=== PATIENT | male | born 1965 | race Caucasian/White ===

== ENCOUNTER → 2019-01-15 09:32 | Outpatient (CLI) | payer MEDICARE, MEDICAID ==
[2014-12-13 07:36] VITALS: BMI 36.6
[~2019-01-15 09:32] MED LIST: ACIDOPHILUS LAC1 CAP PO; AMOXICILLIN500 M1 PO; BIAXIN 500 MG500 MG PO
== END | disposition home or self-care (01) ==
LOC: D.CT 09:32
PROVIDERS: ATTEND Internal Medicine Gastroenterology
DX: R10.9 Unspecified abdominal pain (principal); R11.2 Nausea with vomiting, unspecified

== ENCOUNTER → 2019-01-26 08:18 | Outpatient (CLI) | payer MEDICARE, MEDICAID ==
[2014-12-13 07:36] VITALS: BMI 36.6
== END | disposition home or self-care (01) ==
LOC: D.MRI 08:18
PROVIDERS: ATTEND Internal Medicine Gastroenterology
DX: R94.5 Abnormal results of liver function studies (principal)

== ENCOUNTER 2019-05-14 18:17 | Emergency (ER) | payer MEDICARE, MEDICAID ==
[~2019-05-14] VITALS: Ht 170.2 cm; Wt 113.6 kg
[2019-05-14 18:39] VITALS: Ht 170.2 cm; Wt 113.6 kg
[2019-05-14] MEDS ORDERED: NAPROSYN500 MG PO (20:23)
[2019-05-14 21:00] VITALS: BP 143/80
== END 2019-05-14 21:00 | disposition home or self-care (01) ==
LOC: D.ER 18:17
DX: M25.562 Pain in left knee (principal); M76.9 Unspecified enthesopathy, lower limb, excluding foot

== ENCOUNTER 2019-07-09 19:41 | Inpatient (IN) | payer MEDICARE, MEDICAID ==
[~2019-07-09] VITALS: Ht 170.2 cm; Wt 111.8 kg
[~2019-07-09 19:41] MED LIST changes: +NAPROSYN500 MG PO
--- NOTE | 2019-07-09 20:01 | NUR ---
POISON CONTROL CONTACTED. INSTRUCTED TO TREAT PT SYMPTOMATICALLY AND MONITOR FOR RESP DEPRESSION, BRADYCARDIA. INFORMED TO CONSULT POISON CONTROL IF PT HAS ELEVATED TYLENOL OR SALICILATE LEVELS
--- NOTE | 2019-07-09 20:04 | NUR ---
PT HAVING DIFFICULTY FOLLOWING COMMANDS AT THIS TIME, BUT IS SPEAKING TO NURSES. PT WILL OPEN EYES WHEN DIRECTED, BUT IMMEDIATELY CLOSES THEM. PT ALSO HAVEING UNCONTROLLED JERKING MOVEMENTS, THAT PER EMS BEGAN EN ROUTE. COLOR WNL FOR RACE. RESPIRATIONS ARE EVEN AND UNLABORED. NO DISTRESS NOTED.
[2019-07-09 20:17] LABS: BASOPHILS 0.4 % (0-2); HEMATOCRIT 46.3 % (42.0-54.0); HEMOGLOBIN 15.8 g/dL (13.5-17.5); IMMATURE GRANULOCYTES 0.4 % (0-5); LYMPHOCYTES 13.3 % (15-50); MCH 30.7 pg (26.0-34.0); MCHC 34.1 g/dL (31.0-37.0); MCV 89.9 fL (80.0-100.0); MEAN PLATELET VOLUME 9.9 fL (7.4-10.4); MONOCYTES 5.1 % (2-11); NEUTROPHILS 79.8 % (40-80); PLATELET COUNT 177 10x3/uL (130-400); RBC 5.15 10x6/uL (4.20-6.10); RDW 13.3 % (11.5-14.5); WBC 10.9 10x3/uL (4.8-10.8)
[2019-07-09 20:38] LABS: ANION GAP 13.7 mmol/L (8-16); CALCIUM 9.8 mg/dL (8.5-10.1); CARBON DIOXIDE 26.2 mmol/L (21.0-32.0); CREATININE - SERUM 1.3 mg/dL (0.6-1.3); POTASSIUM - SERUM 3.9 mmol/L (3.5-5.1)
[2019-07-09 20:45] LABS: ALBUMIN 3.6 g/dL (3.4-5.0); BILIRUBIN - TOTAL 0.55 mg/dL (0.2-1.3)
[2019-07-09 21:01] LABS: BILIRUBIN NEGATIVE (NEGATIVE); GLUCOSE NEGATIVE (NEGATIVE); KETONE NEGATIVE (NEGATIVE); NITRITE NEGATIVE (NEGATIVE); SPECIFIC GRAVITY 1.025 (1.005-1.020); UROBILINOGEN NORMAL (NORMAL)
[2019-07-09 21:06] LABS: UDS - AMPHET NEGATIVE QUAL (NEGATIVE); UDS - BARB NEGATIVE QUAL (NEGATIVE); UDS - BENZO NEGATIVE QUAL (NEGATIVE); UDS - COCAINE NEGATIVE QUAL (NEGATIVE); UDS - OPIATE NEGATIVE QUAL (NEGATIVE); UDS - PCP NEGATIVE QUAL (NEGATIVE); UDS - THC NEGATIVE QUAL (NEGATIVE)
--- NOTE | 2019-07-09 21:17 | NUR ---
PT IS BECOMING AGGRESSIVE AT THIS TIME. PT PULLED OFF ALL MONITORS. ATTEMPTS TO PUT MONITORS BACK ON X5. UNSUCCESSFUL. PT IS RESTING WITH EYES CLOSED . RESPIRATIONS ARE EVEN AND UNLABORED. PT DIFFICULT TO AROUSE, BUT WILL AROUSE WITH LOUD VOICE, AND TACTILE STIMULI. . FAMILY AT BEDSIDE.
[2019-07-09 21:41] VITALS: BP 103/63
--- NOTE | 2019-07-09 22:40 | NUR ---
BACLOFEN SENT HOME WITH FAMILY MEMBER
[2019-07-09 22:50] VITALS: BP 141/97
[2019-07-09 23:00] VITALS: BP 141/80
[2019-07-10] VITALS (15 sets, daily range): BP systolic 100–159; BP diastolic 71–102; Ht 170.2 cm; Wt 111.8 kg
--- NOTE | 2019-07-10 00:33 | NUR ---
POISON CONTROL CALLED AND UPDATE GIVEN, NO FURTHER ORDERS RECEIVED.
--- NOTE | 2019-07-10 07:00 | NUR ---
BEDSIDE REPORT RECEIVED. SHIFT ASSESSMENT COMPLETED PER THE FLOWSHEET, SEE FLOWSHEET FOR INFORMATION. PT VERY HARD TO AROUSE, STERNAL RUB AND PAIN RESPONSE DONE WITH NO RESPONSE. AROUSED PT TO YELLING HIS NAME AND STERNAL RUB. PT ANSWERED MY QUESTIONS AND WENT RIGHT BACK TO SLEEP. AFTER THAT HE WOULD AWAKEN EASIER WITH JUST SAYING HIS NAME. WILL CONT TO MONITOR.
--- NOTE | 2019-07-10 09:00 | NUR ---
FAMILY AT BEDSIDE. UPDATE GIVEN. WILL CONT TO MONITOR.
--- NOTE | 2019-07-10 11:00 | NUR ---
REASSESSMENT COMPLETED PER FLOWSHEET, SEE FLOWSHEET FOR INFORMATION. PT AWAKE AND ALERT AT THIS TIME. NO ACUTE NEEDS OR DISTRESS NOTED AT THIS TIME. VSS. WILL CONT TO MONITOR.
--- NOTE | 2019-07-10 13:00 | NUR ---
NEW ORDERS RECEIVED. NO ACUTE NEEDS OR DISTRESS NOTED AT THIS TIME.
[2019-07-10] MEDS ORDERED: GLUCOPHAGE500 MG PO (13:16)
--- NOTE | 2019-07-10 15:00 | NUR ---
WAITING ON FAMILY TO GET HERE. PT STATES "I'M READY TO GO HOME", ENSURED PT THAT HE WOULD BE GOING HOME TODAY AND CALMED PT. WILL CONT TO MONITOR.
--- NOTE | 2019-07-10 15:30 | NUR ---
PT DISCHARGED TO HOME WITH SELF CARE VIA WHEELCHAIR TO PERSONAL VEHIVLE, ACCOMPANIED BY FAMILY. NO ACUTE NEEDS OR DISTRESS NOTED AT THIS TIME. WILL CONT TO MONITOR.
--- NOTE | 2019-07-10 17:42 | MORECARE ---
CASE MANAGEMENT DISCHARGE SUMMARY PATIENT: DWAYNE STANLEY JUNIOR UNIT: [id number] ADM DATE: 07/09/19 AGE: 53 : 61 SEX: M ROOM/BED: D.2311 AUTHOR: YONI BARNES PHYSICIAN: REFERRING PHYSICIAN: RACHEL FAROOQ MD DATE OF SERVICE: 07/10/19 Discharge Plan Patient Name: DWAYNE STANLEY Facility: [facility]:[place] : 1965 Planned Disposition: Home Anticipated Discharge Date: Discharge Date: 07/10/2019 Expected LOS: Initial Reviewer: [email or web address] Initial Review Date: 07/10/2019 Generated: 07/10/19 6:42 pm DCPIA - Discharge Planning Initial Assessment Updated by RUCHI: Maureen George on 07/10/19 5:41 pm * Is the patient Alert and Oriented? Yes * How many steps to enter\exit or inside your home? * PCP [facility] * Pharmacy [facility] * Preadmission Environment Home with Family * ADLs Independent * Equipment CPAP * List name and contact numbers for known caregivers / representatives who currently or will assist patient after discharge: RENAE QUIGLEY - SO- [phone] * Verbal permission to speak to the caregivers and representatives has been obtained from the patient. Yes * Community resources currently utilized None * Additional services required to return to the preadmission environment? No * Can the patient safely return to the preadmission environment? Yes * Has this patient been hospitalized within the prior 30 days at any hospital? No Coverage Notice Reviewer: [email or web address] Nadia George Notice Issued Date-Time: 07/10/2019 17:36 Notice Type: Patient Choice Letter Notice Delivered To: Patient Relationship to Patient: Self Twisting Frame Fixer Name: Delivery Method: HAND - Hand Delivered Beth Days: Prior Verbal Notification: Recipient Understood Notice: Yes Recipient Signature: Yes Med Rec Note Co-signed by Attending: Coverage Notice Comment: patient refused home health services and signed declination of services Patient Name: DWAYNE STANLEY Page [phone] at 1742 All edits/amendments must be made on the electronic document DICTATION DATE: 03/13/20 1742 ACOUSTIC SENSOR OPERATOR: CRISTINA 07/10/19 1742 RPT#: [id number] DC DATE:07/10/19 STATUS: DIS IN [facility] [address] [place] [address] END OF REPORT
--- NOTE | 2019-07-10 17:49 | MORECARE ---
CASE MANAGEMENT DISCHARGE SUMMARY PATIENT: DWAYNE STANLEY JUNIOR UNIT: [id number] ADM DATE: 07/09/19 AGE: 53 : 61 SEX: M ROOM/BED: D.2311 AUTHOR: MOLLY,DOC PHYSICIAN: REFERRING PHYSICIAN: RACHEL FAROOQ MD DATE OF SERVICE: 07/10/19 Discharge Plan Patient Name: DWAYNE STANLEY Facility: [facility]:[place] : 1965 Planned Disposition: Home Anticipated Discharge Date: Discharge Date: 07/10/2019 Expected LOS: Initial Reviewer: [email or web address] Initial Review Date: 07/10/2019 Generated: 07/10/19 6:49 pm Comments DCP- Discharge Planning Updated by [email or web address]: Maureen George on 07/10/19 4:[address] Patient Name: DWAYNE STANLEY Admission Status: ER Accout number: [id number] Admission Date: 07-09-2019 : 1965 Admission Diagnosis: Attending: RACHEL FAROOQ Current LOS: 1 Anticipated DC Date: Planned Disposition: Home Primary Insurance: [facility] [employer] Discharge Planning Comments: CM met with patient at bedside after explaining CM role and obtaining verbal consent. Patient and Significant Other are both noted to have developmental delays. Patient lives at home with his significant other Stacey where he is independent with his care and plans to return there upon discharge. Patient feels this would be a safe discharge. CM discussed availability / needs of home health and medical equipment. Patient refused Home Health Services and declination signed. CM gave both patient and Stacey information on [facility] walk in clinics. Patient denies any discharge needs at this time. Patient states he will have his family drive him home upon discharge. CM will continue to follow and assist as needed with discharge planning / needs. Timers Inspector: Maureen George DCPIA - Discharge Planning Initial Assessment Updated by [email or web address]: Muareen George on 07/10/19 5:41 pm * Is the patient Alert and Oriented? Yes * How many steps to enter\exit or inside your home? * PCP [facility] * [facility] * Preadmission Environment Home with Family * ADLs Independent * Equipment CPAP * List name and contact numbers for known caregivers / representatives who currently or will assist patient after discharge: STACEY QUIGLEY - SO- [phone] * Verbal permission to speak to the caregivers and representatives has been obtained from the patient. Yes * Community resources currently utilized None * Additional services required to return to the preadmission environment? No * Can the patient safely return to the preadmission environment? Yes * Has this patient been hospitalized within the prior 30 days at any hospital? No Coverage Notice Reviewer: [id number] Nadia George Notice Issued Date-Time: 07/10/2019 17:36 Notice Type: Patient Choice Letter Notice Delivered To: Patient Relationship to Patient: Self Waiter/Waitress Buffet Name: Delivery Method: HAND - Hand Delivered Beth Days: Prior Verbal Notification: Recipient Understood Notice: Yes Recipient Signature: Yes Med Rec Note Co-signed by Attending: Coverage Notice Comment: patient refused home health services and signed declination of services Last DP export: 07/10/19 4:42 p Patient Name: DWAYNE STANLEY Page [phone] at 1749 All edits/amendments must be made on the electronic document DICTATION DATE: 07/10/191748 DEAN OF STUDENTS: CRISTINA 07/10/191748 RPT#: [id number] DC DATE:07/10/19 STATUS: DIS IN [facility] [address] [place] [address] END OF REPORT
--- NOTE | 2019-07-12 16:58 | CN ---
PATIENT NAME:DWAYNE STANLEY JUNIOR MEDICAL RECORD: [id number] : 61 LOCATION:MITUL.2311 ADMIT DATE: 07/09/19 ACCOUNT: [id number] CONSULTING PHYSICIAN: SADI POON MD REFERRING PHYSICIAN: RACHEL FAROOQ MD DATE OF CONSULTATION: 07/10/2019 CHIEF COMPLAINT: Overdose. HISTORY OF PRESENT ILLNESS: Consult with the patient in his room included his girlfriend and his 2 sisters, one of his sister is his girlfriend's mother. The patient reports that he was not trying to kill himself, that they were having an argument. Sister states that they frequently have arguments. The patient reports that he took 2 Baclofen and his other sister and brother gave him something else. The sister reports that they gave him their Ativan. The patient denied any homicidal ideation. The patient denies any decrease in appetite. He states that he does feel a little sad. The patient states that he has been sleeping okay and he states that sometimes he gets frustrated but the patient reiterates that he did not want to kill himself. OBJECTIVE: The patient is alert, slightly disheveled. He is oriented to person, place, time and situation. The patient does have an intellectual disability, probably moderate. It appears that the family members also have some intellectual disability and I would say unspecified. The patient appears that he can do some independent activities of daily living such as showering, bathing, eating, has some thought process, but probably struggles with some functional disabilities such as related to managing his own finances. The patient and girlfriend do live independently in her home. His associations are somewhat loose. He has good eye contact. Judgment would be impaired. He is able to focus on our conversation. He does appear slightly depressed and anxious. His affect is restricted and his anxiety is moderate. MEMORY: The patient does not display any severe memory deficits. The patient does not appear to be attending to any hallucinations, visual or auditory hallucinations or have any delusions. His judgment and insight are poor. Impulsivity is moderate to high. Labs reviewed - toxicity negative for BZDs. ASSESSMENT: Major depression and stated unspecified intellectual disability. PLAN: Would be to recommend consult with case management, consider APS evaluation and assessment. Verify if patient has been 'tiered' in the [place] Medicaid system via [facility]. Consider antidepressant such as zoloft. Consider referral for outpatient counseling. Pt and pt family refused offer for inpatient evaluation. The patient does not appear to be at harm. Dictated By: Aletha Perez APN I have interviewed/examined the above patient and agree with these documented findings. TRANSINT:[id number] Voice Confirmation ID: [id number] DOCUMENT ID: [id number] CONSULT REPORT [id number] DWAYNE STANLEY JUNIOR, PETER MD at 1658 at 1717 CC: [id number] DICTATION DATE: 07/10/19 1612 BALL ENDER: 07/10/19 2358 DIS IN 07/10/19 [id number] [place] [address]
== END 2019-07-10 15:30 | disposition home or self-care (01) | DRG 918 ==
LOC: D.ER 19:41 → D.ICU 20:36
PROVIDERS: Emergency Medicine; ADMIT Family Medicine; ATTEND Family Medicine
DX: T50.901A Poisoning by unspecified drugs, medicaments and biological substances, accidental (unintentional), initial encounter (principal); F32.9 Major depressive disorder, single episode, unspecified; F79 Unspecified intellectual disabilities; F43.23 Adjustment disorder with mixed anxiety and depressed mood; E11.649 Type 2 diabetes mellitus with hypoglycemia without coma

== ENCOUNTER 2019-11-15 18:44 | Emergency (ER) | payer MEDICARE, MEDICAID ==
[~2019-11-15] VITALS: Ht 170.2 cm; Wt 110.9 kg
[~2019-11-15 18:44] MED LIST changes: +GLUCOPHAGE500 MG PO
[2019-11-15 19:22] VITALS: Ht 170.2 cm; Wt 110.9 kg
[2019-11-15] MEDS ORDERED: HYDROCORTISO28.35 G1 TOPICAL (20:00)
[2019-11-15] MEDS ORDERED: FUROSEMIDE20 MG PO (20:00)
[2019-11-15 20:19] VITALS: BP 147/77
== END 2019-11-15 20:19 | disposition home or self-care (01) ==
LOC: D.ER 18:44
DX: I87.2 Venous insufficiency (chronic) (peripheral) (principal)

== ENCOUNTER → 2020-08-05 08:52 | Outpatient (CLI) | payer MEDICARE, MEDICAID ==
[2019-11-15 19:22] VITALS: BMI 38.3
[~2020-08-05 08:52] MED LIST changes: +FUROSEMIDE20 MG PO; +HYDROCORTISO28.35 G1 TOPICAL
[2020-08-05 09:57] LABS: ALBUMIN 3.7 g/dL (3.4-5.0); BILIRUBIN - DIRECT 0.16 mg/dL (0.00-0.30); BILIRUBIN - INDIRECT 0.49 mg/dL (0.00-1.00); BILIRUBIN - TOTAL 0.65 mg/dL (0.2-1.3); PROTEIN - SERUM 7.7 g/dL (6.4-8.2)
== END | disposition home or self-care (01) ==
LOC: D.US 08:52
PROVIDERS: ATTEND Internal Medicine Gastroenterology
DX: K76.0 Fatty (change of) liver, not elsewhere classified (principal)